=== PATIENT | male | born 1980 | race Caucasian/White ===

== ENCOUNTER 2020-06-16 17:10 | Outpatient (REF) | payer BC, SELFPAY ==
[2020-06-16 21:21] LABS: HGB 15.8 g/dL (13.5-17.5); MCH 28.5 pg (27.0-33.0); MCHC 32.9 % (32.0-36.0); MCV 86.6 fL (80-95); MPV 9.9 fL (8.0-11.0); Platelet Count 308 10^3/uL (130-400); RBC 5.54 10^6/uL (4.36-5.78); RDW 12.9 % (11.8-14.1); RDW-SD 40.5 fL; WBC 8.16 10^3/uL (4.4-10.8)
[2020-06-16 22:08] LABS: ALT 75 U/L (16-63); AST 29 U/L (15-37); Albumin 4.1 g/dL (3.4-5.0); Alkaline Phosphatase 50 U/L (46-116); Anion Gap 10.2 mmol/L (3-11); BUN 14 mg/dL (7-18); Bilirubin, Total 0.4 mg/dL (0.2-1.0); CO2 26.8 mmol/L (21.0-32.0); Calcium 8.8 mg/dL (8.5-10.1); Chloride 103 mmol/L (98-107); Glucose 99 mg/dL (74-106); Potassium 4.3 mmol/L (3.5-5.1); Sodium 140 mmol/L (136-145); Total Protein 7.4 g/dL (6.4-8.2)
[2020-06-16 22:09] LABS: TSH 1.01 uIU/mL (0.36-3.74)
== END 2020-06-16 17:30 ==
LOC: NCHCN 17:10
PROVIDERS: PCP Nurse Practitioner Family; Visit Provider Internal Medicine
DX: E66.9 Obesity, unspecified (principal); Z00.00 Encounter for general adult medical examination without abnormal findings
CPT/HCPCS: 80053; 85027; 84443

== ENCOUNTER 2021-07-06 15:17 | Outpatient (REF) | payer OTHER, SELFPAY ==
[2021-07-06 18:04] LABS: Hemoglobin A1C 5.8 % (<5.7)
[2021-07-06 18:12] LABS: ALT 58 U/L (16-63); AST 22 U/L (15-37); Albumin 4.1 g/dL (3.4-5.0); Alkaline Phosphatase 52 U/L (46-116); Anion Gap 9.2 mmol/L (3-11); BUN 26 mg/dL (7-18); Bilirubin, Total 0.2 mg/dL (0.2-1.0); CO2 27.8 mmol/L (21.0-32.0); CREATININE 1.1 mg/dL (0.70-1.30); Calcium 9.2 mg/dL (8.5-10.1); Calculated LDL 160 mg/dL (<100); Chloride 104 mmol/L (98-107); Cholesterol 279 mg/dL (<200); Glucose 93 mg/dL (74-106); HDL Cholesterol 43 mg/dL (40-60); Potassium 4.2 mmol/L (3.5-5.1); Sodium 141 mmol/L (136-145); TSH (W/Ref FT4) 1.63 uIU/mL (0.36-3.74); Total Protein 7.4 g/dL (6.4-8.2); Triglyceride 383 mg/dL (<150)
== END 2021-07-06 15:18 | disposition home or self-care (01) ==
LOC: NCHCN 15:17
PROVIDERS: PCP Nurse Practitioner Family; Visit Provider Family Medicine
DX: R73.03 Prediabetes (principal); E66.01 Morbid (severe) obesity due to excess calories
CPT/HCPCS: 80053; 80061; 83036; 83735; 84443

== ENCOUNTER 2022-06-14 21:20 | Outpatient (REF) | payer OTHER, SELFPAY ==
[2022-06-14 21:47] LABS: Anion Gap 6.8 mmol/L (3-11); BUN 14 mg/dL (7-18); CO2 28.2 mmol/L (21.0-32.0); Calcium 9.4 mg/dL (8.5-10.1); Chloride 106 mmol/L (98-107); Estimated GFR 97.58 (mL/min/1.73m2); Glucose 105 mg/dL (74-106); Potassium 4.2 mmol/L (3.5-5.1); Sodium 141 mmol/L (136-145)
== END 2022-06-14 21:21 | disposition home or self-care (01) ==
LOC: NCHCN 21:20
PROVIDERS: PCP Nurse Practitioner Family; Visit Provider Registered Nurse
DX: I10 Essential (primary) hypertension (principal)
CPT/HCPCS: 80048

== ENCOUNTER 2024-10-19 14:06 | Outpatient (REF) | payer OTHER, SELFPAY ==
[2024-10-19 22:08] LABS: Calculated LDL 128 mg/dL (<100); Cholesterol 220 mg/dL (<200); HDL Cholesterol 48 mg/dL (>or=40); Triglyceride 220 mg/dL (<150)
== END 2024-10-19 14:07 | disposition home or self-care (01) ==
LOC: NCHCN 14:06
PROVIDERS: PCP Family Medicine; Visit Provider Family Medicine
DX: E78.5 Hyperlipidemia, unspecified (principal)
CPT/HCPCS: 80061

== ENCOUNTER 2024-11-22 15:20 | Outpatient (REF) | payer OTHER, SELFPAY ==
[2024-11-22 21:17] LABS: Abs Immature Grans 0.02 10^3/uL (0.0-0.06); Absolute Basophil Count 0.04 10^3/uL (0.0-0.2); Absolute Eosinophil Count 0.08 10^3/uL (0.0-0.7); Absolute Lymphocyte Count 1.93 10^3/uL (1.2-3.4); Absolute Monocyte Count 0.49 10^3/uL (0.1-0.8); Absolute Neutrophil Count 5.34 10^3/uL (1.2-6.7); Basophils % 0.5 %; HCT 49.2 % (40.0-50.0); HGB 16.2 g/dL (13.5-17.5); Immature Grans % 0.3 %; Lymphocytes % 24.4 %; MCHC 32.9 % (32.0-36.0); MCV 88 fL (80-95); MPV 9.6 fL (8.0-11.0); Monocytes % 6.2 %; Neutrophils % 67.6 %; Platelet Count 293 10^3/uL (130-400); RBC 5.59 10^6/uL (4.36-5.78); RDW-SD 42.2 fL
[2024-11-22 21:31] LABS: ALT 51 U/L (16-63); AST 28 U/L (15-37); Albumin 4.5 g/dL (3.4-5.0); Alkaline Phosphatase 53 U/L (46-116); Anion Gap 7.5 mmol/L (3-11); BUN 11 mg/dL (7-18); Bilirubin, Total 0.6 mg/dL (0.2-1.0); CO2 28.5 mmol/L (21.0-32.0); CREATININE 0.8 mg/dL (0.70-1.30); Calcium 9.8 mg/dL (8.5-10.1); Chloride 105 mmol/L (98-107); Estimated GFR 113.32 (mL/min/1.73m2); Glucose 106 mg/dL (74-106); Potassium 4.3 mmol/L (3.5-5.1); Sodium 141 mmol/L (136-145); Total Protein 8.1 g/dL (6.4-8.2)
[2024-11-22 21:33] LABS: C-Reactive Protein < 0.50 mg/dL (<or=0.5)
== END 2024-11-22 15:21 | disposition home or self-care (01) ==
LOC: NCHCN 15:20
PROVIDERS: PCP Family Medicine; Visit Provider Internal Medicine
DX: R10.9 Unspecified abdominal pain (principal)
CPT/HCPCS: 80053; 85025; 86140

== ENCOUNTER 2024-11-26 11:34 | Outpatient (REF) | payer OTHER, SELFPAY ==
--- NOTE | 2024-11-26 10:10 | SKI_PTH ---
PATIENT: Gerardo Garibay LOC: [facility] U#:[id number] AGE/SX: 44/M ROOM: RE11/26/[address]: ESTHER: 1980 BED: DIS: 11/26/2024 SPEC #: [id number] RECD: 11/26/24 15:33 STATUS: ADAN XAVIER #: [id number] MIKE: 11/26/24 10:[address]: Perla Siegel DEPT: Surgical Specimen RECD BY: Concha Lopes Tissues: 1 - SKIN BIOPSY(SHAVE/PUNCH) 2 - SKIN BIOPSY(SHAVE/PUNCH) Procedures: GROSS AND MICRO LEVEL 3 Comments: [id number]
== END 2024-11-26 11:35 | disposition home or self-care (01) ==
LOC: NCHCN 11:34
PROVIDERS: PCP Family Medicine; Visit Provider Family Medicine
DX: L91.8 Other hypertrophic disorders of the skin (principal)
CPT/HCPCS: 88304; 88305